=== PATIENT | female | born 1990 | race Caucasian/White ===

== ENCOUNTER 2022-02-17 11:48 | Emergency (ER) | payer BC, SELFPAY ==
[2022-02-17 12:02] VITALS: BP 127/88; PULSE 78; RESP 20; TEMP 37.2; O2SAT 100
--- NOTE | 2022-02-17 12:20 | ED.GENADULT ---
HPI - General Adult General Chief complaint: Skin/Abscess/Foreign Body Stated complaint: poison marquis Source: patient Mode of arrival: ambulatory Limitations: no limitations History of Present Illness HPI narrative: Patient presents for evaluation of pruritic rash to the neck and extremities x4 for last 2 days. Symptoms started after working outside and exposed to poison marquis. She has had a similar response when exposed to poison marquis in the past. She denies any difficulty breathing or swallowing. She has been taking benadryl and applying a topical product to treat poison marquis. In the past she received a steroid burst. She did not have improvement in her symptoms. She then did a steroid taper which was effective. No additional complaints or concerns. Related Data Allergies Allergy/AdvReac Type Severity Reaction Status Date / Time No Known Allergies Allergy Verified 02/17/22 12:09 Review of Systems Review of Systems: CONSTITUTIONAL: Denies fever, chills, or sweats. EYES: Denies visual changes, redness, or discharge. ENT: Denies rhinorrhea, congestion, sore throat, or otalgia. CARDIOVASCULAR: Denies chest pain, palpitations, or edema. RESPIRATORY: Denies cough or dyspnea. GASTROINTESTINAL: Denies abdominal pain, nausea, vomiting, or diarrhea. GENITOURINARY: Denies dysuria or hematuria. SKIN: Reports pruritic rash to neck and extremities x 4. MUSCULOSKELETAL: Denies back pain, joint pain, or myalgia. NEUROLOGIC: Denies headache, numbness, dizziness, or weakness. PSYCHIATRIC: Denies anxiety or depression. FOR[facility]LY [facility] Past Medical History Medical History No pertinent past medical history Surgical History Surgical History No pertinent past surgical history Family History Family History (Updated 02/17/22 @ 12:24 by SID Aquino, ) Father Family history of cardiovascular disease Heart disease Other Diabetes mellitus Hypertension Social History Social History (Updated 02/17/22 @ 12:27 by SID Aquino, ) Smoking status: Former smoker Smoking end date: 08/26/12 Alcohol intake: current Substance use: current Substance use type: marijuana Living arrangements: with family Additional occupation/education comments: RN Gender identity (if verbalized by the patient): Female Sexual Orientation (if Verbalized by the Patient): Straight or Heterosexual Spiritual care concerns: No Exam Narrative: GENERAL: Well-appearing, well-nourished, and in no acute distress. HEAD: Normocephalic, atraumatic. EYES: PERRLA and EOMI. ENT: Nares clear, no rhinorrhea or epistaxis. Mucous membranes moist. Oropharynx without tonsillar hypertrophy exudate or other lesions. Bilateral TMs pearly casper nonbulging NECK: Supple. No adenopathy or masses. No carotid bruits or JVD CHEST: Clear to auscultation. No respiratory distress. No wheezes rales or rhonchi HEART: Regular rate and rhythm. No murmur heard. Normal peripheral pulses. ABDOMEN: Soft, nontender, nondistended, normal active bowel sounds. EXTREMITIES: Normal range of motion. No edema. SKIN: Slightly raised erythematous rash in patchy distribution to BUE. There are some linear areas of streaking erythema to neck and extremities x 4 NEURO: No focal deficits. Alert and oriented x3. PSYCH: Normal mood and affect. Course Course Emergency Course: This is a 31-year-old female that presented with complaints of skin irritation following poison marquis exposure. In the past steroid burst has not worked so we will provide her with a steroid taper. She is already taking Benadryl. Use calamine. Given Solu-Medrol while here. Go to the ER for difficulty breathing or swallowing. Follow-up outpatient for further evaluation and treatment. Patient agreement plan of care. Level of Care: Express Care Visit Vital Signs Vital signs: Vital Sign
[2022-02-17] MEDS: methylPREDNISolone SOD SUCC 125 MG VIAL IM (12:33)
== END 2022-02-17 12:44 | disposition home or self-care (01) ==
PROVIDERS: Emergency Provider Nurse Practitioner
DX: L23.7 Allergic contact dermatitis due to plants, except food (principal); Z87.891 Personal history of nicotine dependence
CPT/HCPCS: 96372; 99203; G0463; J2930